=== PATIENT | female | born 1995 | race Caucasian/White ===

== ENCOUNTER 2016-11-18 17:54 | Emergency (ER) | payer OTHER ==
[~2016-11-18] VITALS: Ht 172.7 cm; Wt 80.2 kg
[~2016-11-18 17:54] MED LIST: DIVA250T4 PO; ESCI10TA10 PO
[2016-11-18 17:59] VITALS: BP 105/70
== END 2016-11-18 18:56 | disposition home or self-care (01) ==
LOC: ED 18:50
DX: S39.012A Strain of muscle, fascia and tendon of lower back, initial encounter (principal); S29.012A Strain of muscle and tendon of back wall of thorax, initial encounter; G40.909 Epilepsy, unspecified, not intractable, without status epilepticus; X58.XXXA Exposure to other specified factors, initial encounter; Y93.89 Activity, other specified; Y99.8 Other external cause status; Y92.89 Other specified places as the place of occurrence of the external cause
CPT/HCPCS: 99283

== ENCOUNTER 2016-12-10 20:28 | Emergency (ER) | payer OTHER ==
[~2016-12-10] VITALS: Ht 172.7 cm; Wt 77.3 kg
[2016-12-10] MEDS ORDERED: LAMO300T PO (20:50)
[2016-12-10] MEDS ORDERED: FLUO20CA19 PO (20:50)
[2016-12-10] MEDS ORDERED: LAMOTRIGINE 200 MG TABLET PO ONE (21:00)
[2016-12-10 21:18] VITALS: BP 105/68
== END 2016-12-10 22:21 | disposition home or self-care (01) ==
LOC: ED 21:36
DX: G40.909 Epilepsy, unspecified, not intractable, without status epilepticus (principal)
CPT/HCPCS: 99283

== ENCOUNTER 2018-03-29 23:08 | Emergency (ER) | payer MEDICAID, OTHER ==
[~2018-03-29] VITALS: Ht 172.7 cm; Wt 89.5 kg
[~2018-03-29 23:08] MED LIST changes: +FLUO20CA19 PO; +LAMO300T PO
[2018-03-29 23:19] VITALS: BP 107/64
[2018-03-30 00:02] LABS: CULTURE INDICATED? YES; MICROSCOPIC INDICATED
== END 2018-03-30 00:20 | disposition home or self-care (01) ==
LOC: ED 03-30 00:14
DX: N30.00 Acute cystitis without hematuria (principal); G40.909 Epilepsy, unspecified, not intractable, without status epilepticus; F32.9 Major depressive disorder, single episode, unspecified
CPT/HCPCS: 81001; 87077; 87086; 87186; 99284